=== PATIENT | female | born 1975 | race Caucasian/White ===

== ENCOUNTER 2017-09-13 08:43 | Day surgery (SDC) | payer OTHER ==
[~2017-09-13] VITALS: Ht 165.1 cm; Wt 61.7 kg
[~2017-09-13 08:43] MED LIST: ADVIL200 MG PO; LEXAPRO10 MG PO; NASONEX17 GM BOTH NARES; SYNTHROID50 MCG PO; XANAX0.5 MG PO; ZYRTEC10 M3 PO
[2017-09-13 09:14] VITALS: BP 135/72
[2017-09-13 15:15] VITALS: BP 98/50
[2017-09-13 19:33] VITALS: BP 108/56
[2017-09-13 23:40] VITALS: BP 113/63
[2017-09-14 04:11] VITALS: BP 101/58
[2017-09-14 06:23] LABS: HEMATOCRIT 30.2 % (36.0-46.0); MCH 27.7 PG (29.0-34.0); MCHC 32.1 G/DL (30.0-36.0); MCV 86.3 FL (83-99); PLATELET COUNT 140 K/uL (156-360); RBC DIS.WIDTH-CV 13.8 % (11.8-14.6); RBC DIS.WIDTH-SD 43.4 % (39-53); WHITE BLOOD COUNT 8.3 K/uL (4.1-10.2)
[2017-09-14 06:32] LABS: HEMOGLOBIN 9.7 G/DL (11.9-15.5)
[2017-09-14 06:55] LABS: CHLORIDE 106 MEQ/L (99-109); CREATININE 0.6 MG/DL (0.6-1.3); GFR ESTIMATE (CALCULATED) > 59 mL/min/; GLUCOSE 118 mg/dL (70-99); POTASSIUM 3.7 MEQ/L (3.7-5.4); SODIUM 139 MEQ/L (136-147); UREA NITROGEN (BUN) 5 mg/dL (9-23)
[2017-09-14 07:34] VITALS: BP 82/44
[2017-09-14 07:50] VITALS: BP 112/56
[2017-09-14] MEDS ORDERED: MOTRIN600 MG PO (09:05)
[2017-09-14] MEDS ORDERED: ENDOCET 5-3251 EACH PO (09:05)
== END 2017-09-14 12:37 | disposition home or self-care (01) ==
LOC: SDC 08:43 → 2SOUTH 13:00 → 2EASTP 13:00 → ENRESERV 13:01 → SDC 14:20 → 2EASTP 15:34
PROVIDERS: Obstetrics & Gynecology
DX: N80.0 Endometriosis of uterus (principal); D25.1 Intramural leiomyoma of uterus; N92.0 Excessive and frequent menstruation with regular cycle; E03.9 Hypothyroidism, unspecified; F41.9 Anxiety disorder, unspecified; R00.2 Palpitations
CPT/HCPCS: 80048; 85027; 88307; G0378; J0131; J0690; J1100; J1170; J2250; J2270; J2405; J3010; J7120; Q0175; S0020